=== PATIENT | female | born 1955 | race Caucasian/White ===

== ENCOUNTER 2020-06-22 14:51 | Inpatient (IN) ==
[2020-06-22] MEDS ORDERED: ONDANSETRON INJ 2 MG/ML 2 ML VIAL IV STA (15:54)
[2020-06-22] MEDS ORDERED: KETOROLAC TROMETHAMINE 15 MG/ML VIAL IV STA (15:54)
--- NOTE | 2020-06-22 15:58 | Emergency Department Note ---
Impression & Plan Right sided abdominal pain, Ovarian torsion, Nausea ED Provider Note NAME: VERÓNICA MARKHAM AGE: 64 SEX: F : 1955 ARRIVES VIA: Walk-In INFORMANT: [Patient] ED PROVIDER(S): [Jean-Paul Camacho MD] CHIEF COMPLAINT: Flank pain HISTORY OF PRESENT ILLNESS: The patient is a 64-year-old female presents to the ED with 4 hours of severe 10/10 right flank pain. The patient states that the pain started just before lunch, she ate and things got worse. She denies urinary complaints, she was nauseated but has not vomited. She states that even taking a deep breath seems to make the pain slightly worse. The patient was fine earlier in the day. She has not had cough or congestion, there has been no chest pain. No previous history of kidney stones or gallbladder issues. She states she has had pelvic surgery, but, she is not sure exactly what was done. She states she has never experienced pain similar to this in the past. REVIEW OF SYSTEMS: See HPI for pertinent positives and negatives. A total of ten systems were reviewed and were otherwise negative. PMHx/PSHx: See Below SOCIAL HISTORY: See Below. PHYSICAL EXAM: GENERAL: Patient is in moderate distress from pain. HEENT: No acute trauma, normocephalic atraumatic, mucous membranes moist, no n ravinder congestion, no scleral icterus. NECK: No stridor, no adenopathy, no meningismus, trachea is midline. LUNGS: Clear to auscultation bilaterally, no wheeze, no rhonchi, breath sounds equal. HEART: Without murmurs gallops or rubs, regular rate and rhythm. ABDOMEN: Soft, moderately tender along the entire right side of the abdomen, bowel sounds positive, no hernias, no peritonitis. EXTREMITIES: No cyanosis or edema, full range of motion of all the joints without pain or difficulty, no signs for acute trauma. NEUROLOGIC: Oriented x 3, no acute motor or sensory deficits, no focal weakness. SKIN: No rash, no jaundice, no diaphoresis. Back: No flank discomfort to percussion. DIFFERENTIAL DIAGNOSIS: Appendicitis, infections, diverticulitis, ovarian torsion, ovarian mass, UTI, obstruction, mesenteric ischemia, aortic pathology, inflammatory bowel disease, renal colic, PUD, pancreatitis, biliary pathology, hernia, volvulus, constipation, as well as other pathologies. EMERGENCY DEPARTMENT COURSE/PROCEDURES: ECG: Indication was preop. The ECG shows a sinus bradycardia with a rate of 59. There is no ST elevation, no PVCs. The QTc is 413. Continuous Cardiac Monitoring: An order was placed for continuous cardiac monitoring. The monitor shows a rate of 74 with normal sinus rhythm. MEDICAL DECISION MAKING: There is no leukocytosis or concerning anemia. There is a normal platelet co unt. No significant electrolyte abnormality or kidney failure. No concerning liver enzyme elevation. No evidence for pancreatitis. Covid testing was negative. Chest film did not show free air or pneumonia. ECG showed a sinus rhythm, no acute ischemia. Abdominal and pelvis CT suggested a right ovarian torsion and a right ovarian lesion about 5.5 cm in size. The patient was given IV saline for hydration. She received IV Toradol, IV morphine, IV Zofran. She was eventually given IV Dilaudid for additional pain control. After the results from the CT returned, I immediately spoke with [facility]. The patient was seen in the ED by W[facility] PUMPER. She is being transferred to the OR for surgical intervention. The patient is aware of her findings, case management has been involved. Certainly, the findings on CT explain her discomfort and presentation. Past Med/Surg History Medical History No significant past medical history Surgical History H/O pelvic surgery Social History Smoking Status: Current every day smoker Tobacco Type: Cigarettes Feels Safe at Home: Yes Allergies Allergies Allergy/AdvReac Type Severity Reaction Status Date / Time bee venom protein (honey bee) Allergy Unknown Verified 06/22/20 17:42 Home Meds Home Medications Medication Instructions Recorded Confirmed multivitamin 1 tab PO QAM 06/22/20 06/22/20 vitamin B complex 1 tab PO QAM 06/22/20 06/22/20 Results & Data (ED) Vital Signs Vital Signs - 24 hr 06/22/20 14:54 06/22/20 16:05 06/22/20 17:05 Temperature 36.8 C Temperature Source Temporal Artery Scan Pulse Rate 83 Pulse Rate [Finger] 70 77 Respiratory Rate 20 20 24 Respiratory Effort / Characteristics Non-Labored Spontaneous Respiratory Depth Normal Respiratory Pattern Blood Pressure [Right Arm] 182/104 H 144/114 H Blood Pressure Mean [Right Arm] 130 124 Blood Pressure Position Sitting Blood Pressure Position [Right Arm] Pulse Oximetry 100 93 94 Oxygen Delivery Method Room Air Room Air Room Air Sepsis Recent Fever Within 48 Hours No Sepsis New/Unexplained Change in Mental Status N/A Sepsis Action Taken by Nursing No Action Required 06/22/20 17:37 06/22/20 18:33 Temperature 36.7 C Temperature Source Oral Pulse Rate Pulse Rate [Finger] 74 68 Respiratory Rate 20 18 Respiratory Effort / Characteristics Non-Labored Spontaneous Respiratory Depth Normal Respiratory Pattern Regular Blood Pressure [Right Arm] 170/110 H 146/96 H Blood Pressure Mean [Right Arm] 130 112 Blood Pressure Position Blood Pressure Position [Right Arm] Sitting Pulse Oximetry 96 92 Oxygen Delivery Method Room Air Room Air Sepsis Recent Fever Within 48 Hours Sepsis New/Unexplained Change in Mental Status Sepsis Action Taken by [facility] Medications Current Medication List: was personally reviewed by me Laboratory Data Attestation: I reviewed the patient's lab results. Result diagrams: 06/22/20 15:32 06/22/20 15:32 Lab Results 06/22/20 06/22/20 06/22/20 Range/Units 15:32 15:32 17:38 WBC 7.84 (4.8-10.8) K/uL RBC 4.59 (4.2-5.4) M/uL Hgb 14.1 (12.0-16.0) g/dL Hct 40.7 (37-47) % MCV 88.7 (80-100) fL MCH 30.7 (25-34) pg MCHC 34.6 (32-36) g/dL RDW Std Deviation 41.2 (36.4-46.3) fL RDW Coeff of Gema 12.9 (11.5-14.5) % Plt Count 310 (130-400) K/uL MPV 10.1 (7.4-10.4) fL Immature Gran % (Auto) 0.1 % Neut % (Auto) 76.1 % Lymph % (Auto) 15.4 % Garden % (Auto) 7.4 % Eos % (Auto) 0.6 % Baso % (Auto) 0.4 % Neut # (Auto) 5.96 (1.4-6.5) K/uL Lymph # (Auto) 1.21 (1.2-3.4) K/uL Garden # (Auto) 0.58 (0.11-0.59) K/uL Eos # (Auto) 0.05 (0-0.5) K/uL Baso # (Auto) 0.03 (0-0.2) K/uL Immature Gran # (Auto) 0.01 (0.00-0.02) K/uL Sodium 139 (136-145) mmol/L Potassium 3.6 (3.5-5.1) mmol/L Chloride 106 (98-107) mmol/L Carbon Dioxide 27 (21-32) mmol/L Anion Gap 7.0 (3-11) BUN 16 (7-18) mg/dl Creatinine 0.97 (0.6-1.2) mg/dl Est Cr Clr Drug Dosing 58.1 ml/min Est GFR ( Amer) 71.5 Est GFR (Non-Af Amer) 61.7 BUN/Creatinine Ratio 16.4 (10-20) Glucose 122 H (70-99) mg/dl Calcium 9.8 (8.5-10.1) mg/dl Total Bilirubin 0.7 (0.2-1) mg/dl AST 12 L (15-37) U/L ALT 26 (12-78) U/L Alkaline Phosphatase 88 (45-117) U/L Total Protein 8.5 H (6.4-8.2) gm/dl Albumin 4.2 (3.4-5.0) gm/dl Globulin 4.3 H (2.5-4.0) gm/dl Albumin/Globulin Ratio 1.0 (0.9-2) Lipase 157 (73-393) U/L COVID-19 Eval [facility] SARS-CoV-2, RNA, NAAT (NEGATIVE) 06/22/20 Range/Units 17:38 WBC (4.8-10.8) K/uL RBC (4.2-5.4) M/uL Hgb (12.0-16.0) g/dL Hct (37-47) % MCV (80-100) fL MCH (25-34) pg MCHC (32-36) g/dL RDW Std Deviation (36.4-46.3) fL RDW Coeff of Gema (11.5-14.5) % Plt Count (130-400) K/uL MPV (7.4-10.4) fL Immature Gran % (Auto) % Neut % (Auto) % Lymph % (Auto) % Garden % (Auto) % Eos % (Auto) % Baso % (Auto) % Neut # (Auto) (1.4-6.5) K/uL Lymph # (Auto) (1.2-3.4) K/uL Garden # (Auto) (0.11-0.59) K/uL Eos # (Auto) (0-0.5) K/uL Baso # (Auto) (0-0.2) K/uL Immature Gran # (Auto) (0.00-0.02) K/uL Sodium (136-145) mmol/L Potassium (3.5-5.1) mmol/L Chloride (98-107) mmol/L Carbon Dioxide (21-32) mmol/L Anion Gap (3-11) BUN (7-18) mg/dl Creatinine (0.6-1.2) mg/dl Est Cr Clr Drug Dosing ml/min Est GFR ( Amer) Est GFR (Non-Af Amer) BUN/Creatinine Ratio (10-20) Glucose (70-99) mg/dl Calcium (8.5-10.1) mg/dl Total Bilirubin (0.2-1) mg/dl AST (15-37) U/L ALT (12-78) U/L Alkaline Phosphatase (45-117) U/L Total Protein (6.4-8.2) gm/dl Albumin (3.4-5.0) gm/dl Globulin (2.5-4.0) gm/dl Albumin/Globulin Ratio (0.9-2) Lipase (73-393) U/L COVID-19 Eval Order SARS-CoV-2, RNA, NAAT NEGATIVE (NEGATIVE) Administered Medications Morphine Sulfate (Morphine Sulfate 4 Mg/Ml 1 Ml Carp\Vial) 4 mg IV Q15M PRN PRN Reason: Pain Stop: 07/06/20 15:53 Last Admin: 06/22/20 16:34 Dose: 4 mg Documented by: [id number] Admin: 06/22/20 16:00 Dose: 4 mg Documented by: [id number] Discontinued Medications Hydromorphone HCl (Hydromorphone Inj 1 Mg/Ml Syringe) 1 mg IV NOW STA Stop: 06/22/20 17:02 Last Admin: 06/22/20 17:04 Dose: 1 mg Documented by: [id number] Sodium Chloride (Nss) 500 mls @ 999 mls/hr IV .Q31M ANNE Stop: 06/22/20 16:30 Last Infusion: 06/22/20 16:32 Dose: 0 mls/hr Documented by: [id number] Admin: 06/22/20 16:01 Dose: 999 mls/hr Documented by: [id number] Ketorolac Tromethamine (Ketorolac Tromethamine 15 Mg/Ml Vial) 15 mg IV NOW STA Stop: 06/22/20 15:55 Last Admin: 06/22/20 16:01 Dose: 15 mg Documented by: [id number] Ondansetron HCl (Ondansetron Inj 2 Mg/Ml 2 Ml Vial) 4 mg IV NOW STA Stop: 06/22/20 15:55 Last Admin: 06/22/20 16:01 Dose: 4 mg Documented by: [id number] Imaging Data Radiologist's Impression: XR chest 1V portable CLINICAL HISTORY: right flank pain COMPARISON STUDY: March 2007 FINDINGS: There is interval increase in the size of the heart which is now moderately enlarged. There is no failure. There is a nonspecific opacity at the level left cardiophrenic angle, likely atelectatic or infectious/inflammatory. Addition there are linear basilar atelectatic changes.[There are no significant pleural effusions. IMPRESSION: 1. Interval development of moderate cardiomegaly 2. Basilar atelectasis 3. Nonspecific 2 cm opacity at the level the left cardiophrenic angle likely atelectatic or infectious/inflammatory. Short-term radiographic follow-up is recommended. CT OF THE ABDOMEN AND PELVIS WITHOUT CONTRAST CLINICAL HISTORY: Right flank pain. COMPARISON STUDY: No previous studies for comparison. TECHNIQUE: Axial images of the abdomen and pelvis were obtained without IV contrast. Images were reviewed in the axial, sagittal, and coronal planes. Automated exposure control was utilized for the study. A dose lowering technique was utilized adhering to the principles of ALARA. FINDINGS: Visualized portions of the lower chest demonstrate a moderate sized hiatal with partially intrathoracic stomach. No renal, ureteral or bladder calculi are present. There is no hydronephrosis or hydroureter. There are parapelvic cysts. Evaluation of the remainder of the abdomen and pelvis is suboptimal on this unenhanced examination. Multiple water attenuation hepatic lesions are suboptimally assessed on this exam but favor cysts. The spleen, adrenal glands and pancreas are unremarkable. There is no biliary or pancreatic ductal dilatation. There is no lymphadenopathy. The appendix is normal. There is no evidence for a bowel obstruction. No bowel wall thickening is identified on this unenhanced examination. The uterus is surgically absent. Note is made of a hypodense right adnexal mass that measures 5.5 cm. This is likely within the right ovary. This contains a small hyperdense focus. In addition, there is swirling of the ovarian pedicle. The left ovary is not enlarged. No suspicious osseous lesions are noted. No acute fractures are identified. IMPRESSION: 1. 5.5 cm right adnexal mass. This represents an indeterminate right ovarian lesion which contains a small hyperdense focus which could reflect hemorrhage or a small solid component. In addition, swirling of the right ovarian pedicle. These findings are highly suggestive of right ovarian torsion. Gynecologic consultation is recommended. Findings discussed with Dr. Camacho at time of dictation. 2. No urinary calculi or hydronephrosis. 3. Moderate sized hiatal hernia. Discharge Plan Visit Data Chief Complaint: Flank Pain Stated Complaint: SHARP PAIN IN RIGHT SIDE ED Provider: Jean-Paul Camacho Discharge Problem: Right sided abdominal pain, Ovarian torsion, Nausea Patient Disposition: Admitted As Inpatient Condition: Fair Discharge Instructions Interventions: ED Discharge Assessment Last Done: 06/22/20 18:35
[2020-06-22] MEDS ORDERED: SODIUM CHLORIDE 0.9% 500 ML IV SCH (16:00)
[2020-06-22] MEDS: MoRPHine SULFATE 4 MG/ML 1 ML CARP\\VIAL IV PRN ×2 (16:00→16:34)
[2020-06-22 16:09] LABS: Basophils # (auto) 0.03 K/uL (0-0.2); Basophils % (auto) 0.4 %; Eosinophils # (auto) 0.05 K/uL (0-0.5); Eosinophils % (auto) 0.6 %; Hematocrit (blood only) 40.7 % (37-47); Hemoglobin 14.1 g/dL (12.0-16.0); Immature Granulocytes # (auto) 0.01 K/uL (0.00-0.02); Immature Granulocytes % (auto) 0.1 %; Lymphocytes # (auto) 1.21 K/uL (1.2-3.4); Lymphocytes % (auto) 15.4 %; Mean Corpuscular Hemoglobin 30.7 pg (25-34); Mean Corpuscular Hgb Conc 34.6 g/dL (32-36); Mean Corpuscular Volume 88.7 fL (80-100); Mean Platelet Volume 10.1 fL (7.4-10.4); Monocytes # (auto) 0.58 K/uL (0.11-0.59); Monocytes % (auto) 7.4 %; Neutrophils # (auto) 5.96 K/uL (1.4-6.5); Neutrophils % (auto) 76.1 %; Platelet Count 310 K/uL (130-400); RDW Coefficient of Variation 12.9 % (11.5-14.5); RDW Standard Deviation 41.2 fL (36.4-46.3); Red Blood Count 4.59 M/uL (4.2-5.4); White Blood Count 7.84 K/uL (4.8-10.8)
--- NOTE | 2020-06-22 16:13 | XRay Report ---
XR chest 1V portable CLINICAL HISTORY: right flank pain COMPARISON STUDY: March 2007 FINDINGS: There is interval increase in the size of the heart which is now moderately enlarged. There is no failure. There is a nonspecific opacity at the level left cardiophrenic angle, likely atelecta tic or infectious/inflammatory. Addition there are linear basilar atelectatic changes.[There are no s ignificant pleural effusions. IMPRESSION: 1. Interval development of moderate cardiomegaly 2. Basilar atelectasis 3. Nonspecific 2 cm opacity at the level the left cardiophrenic angle likely atelectatic or infectiou s/inflammatory. Short-term radiographic follow-up is recommended. ACT 112: Negative or not required by law. Electronically signed by: Arnaldo Arredondo M.D. 06/22/2020 4:12 PM
[2020-06-22 16:31] LABS: Albumin Level 4.2 gm/dl (3.4-5.0); BUN Creatinine Ratio 16.4 (10-20); Calcium 9.8 mg/dl (8.5-10.1); Creatinine Clr Calc Pharmacy 58.1 ml/min; Est GFR (African American) 71.5; Est GFR (Non-African American) 61.7; Potassium 3.6 mmol/L (3.5-5.1)
[2020-06-22 16:34] LABS: Bilirubin,Total 0.7 mg/dl (0.2-1); Globulin 4.3 gm/dl (2.5-4.0); Total Protein 8.5 gm/dl (6.4-8.2)
[2020-06-22] MEDS ORDERED: HYDROmorphone INJ 1 MG/ML SYRINGE IV STA (17:01)
--- NOTE | 2020-06-22 17:04 | CT Scan Report ---
CT OF THE ABDOMEN AND PELVIS WITHOUT CONTRAST CLINICAL HISTORY: Right flank pain. COMPARISON STUDY: No previous studies for comparison. TECHNIQUE: Axial images of the abdomen and pelvis were obtained without IV contrast. Images were revi ewed in the axial, sagittal, and coronal planes. Automated exposure control was utilized for the michelle dy. A dose lowering technique was utilized adhering to the principles of ALARA. FINDINGS: Visualized portions of the lower chest demonstrate a moderate sized hiatal with partially i ntrathoracic stomach. No renal, ureteral or bladder calculi are present. There is no hydronephrosis o r hydroureter. There are parapelvic cysts. Evaluation of the remainder of the abdomen and pelvis is s uboptimal on this unenhanced examination. Multiple water attenuation hepatic lesions are suboptimally assessed on this exam but favor cysts. The spleen, adrenal glands and pancreas are unremarkable. The re is no biliary or pancreatic ductal dilatation. There is no lymphadenopathy. The appendix is normal . There is no evidence for a bowel obstruction. No bowel wall thickening is identified on this unenha nced examination. The uterus is surgically absent. Note is made of a hypodense right adnexal mass carmela t measures 5.5 cm. This is likely within the right ovary. This contains a small hyperdense focus. In addition, there is swirling of the ovarian pedicle. The left ovary is not enlarged. No suspicious oss eous lesions are noted. No acute fractures are identified. IMPRESSION: 1. 5.5 cm right adnexal mass. This represents an indeterminate right ovarian lesion which contains a small hyperdense focus which could reflect hemorrhage or a small solid component. In addition, swirli ng of the right ovarian pedicle. These findings are highly suggestive of right ovarian torsion. Gynec ologic consultation is recommended. Findings discussed with Dr. Camacho at time of dictation. 2. No urinary calculi or hydronephrosis. 3. Moderate sized hiatal hernia. ACT 112: Negative or not required by law. Electronically signed by: Edvin Chin M.D. 06/22/2020 5:03 PM
[2020-06-22] MEDS ORDERED: ONDANSETRON INJ 2 MG/ML 2 ML VIAL IV PRN (17:37)
[2020-06-22] MEDS ORDERED: LACTATED RINGER'S 1,000 ML IV SCH (17:45)
--- NOTE | 2020-06-22 17:55 | History & Physical Report ---
Date of Service June 22, 2020 Assessment & Plan (1) Ovarian mass, right: Operative laparoscopy with right oophorectomy planned Present on Admission?: Yes History of Present Illness Chief Complaint: right sided abdominal pain Primary Care Provider: NO PCP 64 F P2002 s/p [facility] in 2006 for fibroids presents to ER with acute onset of RLQ pain and nausea this AM. She has no prior history of this pain. She is nauseous but no vomiting. Pain is mostly RLQ with some catrina-umbilical pain. No other surgical history. She denies any vaginal bleeding. No medical problems currently and no history of Covid exposure. Allergies Allergy/AdvReac Type Severity Reaction Status Date / Time bee venom protein (honey bee) Allergy Unknown Verified 06/22/20 17:42 Home Medications Medication Instructions Recorded Confirmed Type multivitamin 1 tab PO QAM 06/22/20 06/22/20 History vitamin B complex 1 tab PO QAM 06/22/20 06/22/20 History Past Med/Surg History Social History Smoking Status: Current every day smoker Tobacco Type: Cigarettes Feels Safe at Home: Yes Review of Systems Review of Systems: All systems reviewed & are unremarkable except as noted in HPI & below Physical Exam Constitutional: WD/WN, vitals as above + acute distress, + ill appearing and average body habitus Eyes: PERRL, conjunctivae normal, anicteric sclerae ENMT: external ear and nose normal, oropharynx normal Respiratory: normal respiratory effort, lungs clear to auscultation Cardiovascular: RRR, no murmur, no edema Chest (Breasts): Chest: normal inspection of chest Gastrointestinal (Abdomen): Percussion/Palpation: + abdomen tender and + guarding Neurologic: patellar DTR's 2+ bilat, sensation intact Psychiatric: A+Ox3, euthymic affect Orientation: alert and oriented x 3 Results & Data Results & Data ([facility]) Vital Signs (Past 12 Hours) Vital Signs Temp Pulse Pulse Resp BP Pulse Ox 06/22/20 17:37 74 20 170/110 H 96 06/22/20 17:05 77 24 144/114 H 94 06/22/20 16:05 70 20 182/104 H 93 06/22/20 14:54 36.8 C 83 20 100 Code Status & VTE Plan VTE Prophylaxis Plan VTE Prophylaxis will be ordered: Yes
[2020-06-22] MEDS ORDERED: LIDOCAINE HCL 2% 2 ML VIAL/AMP(20MG/ML) INFIL ONE (18:34)
[2020-06-22] MEDS ORDERED: DEXAMETHASONE SOD INJ 4 MG/ML VIAL ONE (18:34)
[2020-06-22] MEDS ORDERED: GLYCOPYRROLATE 0.2 MG/ML VIAL ONE ×2 (18:34→22:19)
[2020-06-22] MEDS ORDERED: PROPOFOL IV EMULSION 10 MG/ML 20 ML VIAL IV ONE (18:34)
[2020-06-22] MEDS ORDERED: NEOSTIGMINE METHYLSULFATE 5 MG/5 ML SYR ONE (18:34)
[2020-06-22] MEDS ORDERED: ONDANSETRON INJ 2 MG/ML 2 ML VIAL ONE (18:34)
[2020-06-22] MEDS ORDERED: MIDAZOLAM HCL 1 MG/ML 2ML VIAL ONE (19:09)
[2020-06-22] MEDS ORDERED: fentaNYL citrate 100 MCG/2 ML VIAL ONE ×3 (19:09→23:11)
[2020-06-22] MEDS ORDERED: BUPIVACAINE 0.5 % 5 MG/1 ML MPF 30ML VIAL ONE ×2 (21:33→23:57)
[2020-06-22] MEDS ORDERED: ePHEDrine sulfate 50 MG/ML SYR ONE (22:10)
[2020-06-22] MEDS ORDERED: ROCURONIUM BROMIDE 10 MG/ML 5 ML VIAL IV ONE (22:11)
[2020-06-22] MEDS ORDERED: KETOROLAC 30 MG/ML VIAL ONE (22:14)
--- NOTE | 2020-06-23 00:25 | Post Operative Brief Note ---
Immediate Post Op Note v1 Date of Surgery June 23, 2020 Pre & Post Diagnosis Operation Date: 06/22/20 19:00 Pre-Op Diagnosis: right ovarian torsion Post-Op Diagnosis: right ovarian torsion I identified the patient and participated in the time-out.: Yes Procedure Operation Date: 06/22/20 19:00 Actual Procedures p Diagnostic Laparoscopic Operative, Removal of Right Ovary, Lysis of Adhesions(Right) - Jefe Rose MD Surgeon Jefe Rose MD Mark Up Designer Dr. Diaz Estimated Blood Loss 25 Findings Consistent with Post-Op Diagnosis multiple abdominal and pelvic adhesions torsion of right tube and ovary Fluids LR 1200 ml Specimens right tube and ovary Drains Lane Catheter (insterted by Dr Rose at start of case without diffculty, draining clear yellow urine. ) Anesthesia Type General Complications none Disposition Accompanied Patient To Recovery: Yes Disposition: Surgical ICU Overlapping Procedure I was immediately available: during the entire case. Back up surgeon: used during listed procedure.
[2020-06-23] MEDS ORDERED: ACETAMINOPHEN 1,000 MG/100 ML VIAL IV PRN (00:30)
[2020-06-23] MEDS ORDERED: ATROPINE SULFATE 0.1 MG/ML 10ML SYR IV PRN (00:49)
[2020-06-23] MEDS ORDERED: fentaNYL citrate 100 MCG/2 ML VIAL IV PRN (00:49)
[2020-06-23] MEDS ORDERED: ePHEDrine sulfate 50 MG/ML AMP IV PRN (00:49)
--- NOTE | 2020-06-23 00:49 | Anesthesiology Consultation ---
Date of Service June 23, 2020 Assessment & Plan ASA [id number] Proposed Anesthesia Anesthesia Type: General Risk / Benefits Reviewed With: PT / POA / Parent / Guardian, Accepts Plan and Informed Consent Obtained Additional Comments: pt was seen and examined prior to case. late entry History Surgery Operation Date: 06/22/20 19:00 Proposed Procedures p Diagnostic Laparoscopic Operative, Possible Removal of Right Ovary - Jefe Rose MD Height/Weight Height: 5 ft 4 in Weight: 75 kg Allergies Allergy/AdvReac Type Severity Reaction Status Date / Time bee venom protein (honey bee) Allergy Unknown Verified 06/22/20 17:42 Medications Home Medications Medication Instructions Recorded Confirmed Last Taken multivitamin 1 tab PO QAM 06/22/20 06/22/20 06/21/20 vitamin B complex 1 tab PO QAM 06/22/20 06/22/20 06/21/20 Active Medications Generic Name Dose Route Start Last Admin Trade Name Freq PRN Reason Stop Dose Admin Morphine Sulfate 4 mg 06/22/20 15:54 06/22/20 16:34 Morphine Sulfate 4 Mg/Ml 1 Ml Carp\Vial IV 07/06/20 15:53 4 mg Q15M PRN Administration Pain NPO Date Last Intake of Fluids: 06/22/20 Time Last Intake of Fluids: 15:00 Last Intake of Fluids Comment: water Date Last Intake of Solids: 06/22/20 Time Last Intake of Solids: 12:00 Last Intake of Solids Comment: shrimp and noodles Past Medical History Medical History No significant past medical history Exercise / Class Metabolic Activity II 4-5 Yardwork/Stairs/Walk up hill Past Surgical History Surgical History H/O pelvic surgery Past Anesthesia History No Hx of Anesthesia Complications and No Family Hx of Anesthesia Complications History of PONV No Hx of PONV and No Hx of Motion Sickness Social History Smoking Status: Current every day smoker Review of Systems denies fever/cough/ colds/ chest pain/ SOB/ CORNELIUS denies CORNELIUS Physical Exam Vital Signs Last Vital Signs Temp 36.8 C 06/23/20 00:19 Pulse 77 06/23/20 00:45 Resp 17 06/23/20 00:45 BP 104/64 06/23/20 00:45 Pulse Ox 94 06/23/20 00:45 ENMT Mouth: + dentures; no TMJ abnormality and no dentition abnormality Thyromental Distance: > or= 3.5 Finger Breadths Mallampati Class: II Neck neck extension not limited Respiratory normal respiratory effort; no respiratory distress Auscultation: lungs clear to auscultation bilaterally Cardiovascular Rate/Rhythm: regular rate and regular rhythm Neurologic moves all extremities Psychiatric Orientation: alert and oriented x 3 Testing Laboratory Results 06/22/20 15:32 06/22/20 15:32
--- NOTE | 2020-06-23 00:50 | Anesthesiology Progress Note ---
Date of Service June 23, 2020 Anesthesia Post Procedure Vital Signs Vital Signs: Temp Pulse Pulse Pulse Resp BP Pulse Ox 06/23/20 00:45 77 17 104/64 94 06/23/20 00:35 78 23 110/59 L 94 06/23/20 00:25 77 16 112/61 94 06/23/20 00:19 36.8 C 87 20 126/61 97 06/22/20 18:33 36.7 C 68 18 146/96 H 92 06/22/20 17:37 74 20 170/110 H 96 06/22/20 17:05 77 24 144/114 H 94 06/22/20 16:05 70 20 182/104 H 93 06/22/20 14:54 36.8 C 83 20 100 Pain Intensity Abdomen: Pain Intensity: 6 Transfer of Care Handoff Completed per policy Notes Mental Status: alert / awake / arousable and participated in evaluation Patient Amnestic to Procedure: Yes Nausea / Vomiting: adequately controlled Pain: adequately controlled Airway Patency, RR, SpO2: stable & adequate BP & HR: stable & adequate Hydration State: stable & adequate Anesthetic Complications: no major complications apparent and Pt Satisfied with anesthetic care
[2020-06-23] MEDS ORDERED: LACTATED RINGER'S 1,000 ML IV SCH (01:20)
[2020-06-23] MEDS ORDERED: IBUPROFEN 600 MG TAB PO PRN (01:20)
[2020-06-23] MEDS ORDERED: oxyCODONE HCL IR 5 MG TAB (IMMEDIATE RELEASE) PO PRN (01:20)
[2020-06-23] MEDS ORDERED: MoRPHine SULFATE 2 MG/ML CARP IV PRN (01:32)
[2020-06-23] MEDS ORDERED: MoRPHine SULFATE 4 MG/ML 1 ML CARP\\VIAL IV PRN (01:33)
[2020-06-23] MEDS ORDERED: COUGH DROP (SUGAR FREE) LOZ 24 LOZ/1 BOX BUCCAL ONE (02:22)
[2020-06-23] MEDS ORDERED: COUGH DROP (SUGAR FREE) LOZ 24 LOZ/1 BOX BUCCAL PRN (02:26)
--- NOTE | 2020-06-23 06:52 | Operative Report (OR) ---
DATE OF OPERATION: 06/22/2020 PREOPERATIVE DIAGNOSES: Right lower quadrant pain, ovarian torsion, right pelvic mass. POSTOPERATIVE DIAGNOSES: Right lower quadrant pain, ovarian torsion, right pelvic mass plus adhesions. PROCEDURE: Operative laparoscopy with right salpingo-oophorectomy and lysis of adhesions. SURGEON: Jefe Rose MD VICE INVESTIGATOR: Emil Diaz MD ANESTHESIA: General. FINDINGS: Right tube and ovary with torsion and right ovarian mass and extensive pelvic and abdominal adhesions. CLINICAL HISTORY: The patient is a 64-year-old female, para 2-0-0-2, status post hysterectomy in the past for fibroids, who presents today after noting right lower quadrant pain starting around lunchtime today, never having this previously, with some nausea. The patient had pain that progressed and was sent and came to the ER. CAT scan revealed presence of possible torsion and a right ovarian mass approximately 5.5 cm. The patient was seen and examined in the ER. She was found to be tender, guarding on the right lower quadrant. No evidence of appendicitis on CAT scan, so a diagnosis of right ovarian mass with torsion was made and the patient was brought to the OR for surgery. DESCRIPTION OF PROCEDURE: After satisfactory general anesthesia, the patient was prepped and draped in usual sterile fashion. Timeout was called prior to the start of the procedure. A Lane catheter was then inserted under direct visualization. Next, attention was then directed abdominally where approximately 5 mL of 0.5% Marcaine were instilled infraumbilically. Stab wound was made with a #15 knife blade. A Veress needle was then placed. Using hanging drop method, the Veress needle was placed. Approximately 3 liters of carbon dioxide gas were then instilled creating an artificial pneumoperitoneum. Veress needle was withdrawn. The 5 mm trocar was inserted. Contents of the pelvic and abdominal cavity were visualized. There were numerous adhesions that were noted from the omentum to the abdominal wall. A second trocar was then placed on the left side of the pelvis for manipulation and retraction of the adhesion and then a third trocar was placed on the right hand side. The adhesions were then visualized. The enseal device was then used to cauterize and cut the adhesions. Once the ovary was visualized, the ovary was then grasped, enseal was then used to cauterize and cut the infundibulopelvic ligament. The 5 mm port was then replaced with a 10 mm port and the ovary was placed in an EndoCatch bag. Ovary was removed in its entirety, which was hemorrhagic, and this procedure was documented with still video photography. The base of the ligament was cauterized. No active bleeding was noted. The contents of the pelvic and abdominal cavity were then irrigated to clear. The incision from the 10 mm port was closed with 0 Vicryl suture with deep sutures followed by imbricating layer of subcuticular layer and 4-0 Monocryl suture. The other ports were closed with 3-0 Vicryl suture. Steri-Strips were applied. Clear urine was noted from the Lane at the end of the procedure. The estimated blood loss was 25 mL, total fluids 1200 mL, and 150 mL of urine. The final sponge, needle, and instrument count were found to be correct. The patient was placed supine on a stretcher and taken to recovery room in stable condition. Please note Dr. Diaz was present for the OR case, providing assistance for entering into the abdominal cavity, holding the camera, lysing adhesions, and operative assistance with the EndoCatch bag and the procedure. I attest to the content of the Intraoperative Record and any orders documented therein. Any exceptions are noted below. JONNY
[2020-06-23] MEDS ORDERED: VITAMIN B COMPLEX TAB PO SCH (09:00)
[2020-06-23] MEDS ORDERED: MULTIVITAMIN TAB PO SCH (09:00)
--- NOTE | 2020-06-23 10:31 | Progress Note ---
Date of Service June 23, 2020 Assessment & Plan Admission and Anticipated Discharge Date Admission Date: June 22, 2020 Subjective Pt doing well s/p lap RSO Nml PE this AM abd; NT ND + BS. Incision C/D/I plan d/c home Results & Data ([facility]) Vital Signs (Past 12 Hours) Vital Signs Temp Pulse Pulse Resp BP Pulse Ox 06/23/20 04:50 36.8 C 85 18 133/82 94 06/23/20 02:08 36.4 C L 91 H 16 139/89 96 06/23/20 01:07 36.5 C 71 12 128/85 06/23/20 00:55 36.5 C 75 12 117/46 L 94 06/23/20 00:45 77 17 104/64 94 06/23/20 00:35 78 23 110/59 L 94 06/23/20 00:25 77 16 112/61 94 06/23/20 00:19 36.8 C 87 20 126/61 97
[2020-06-23 10:48] LABS: Hematocrit (blood only) 34.3 % (37-47); Hemoglobin 11.5 g/dL (12.0-16.0)
[2020-06-23] MEDS ORDERED: ACETAMINOPHEN 500 MG TAB PO PRN (12:54)
--- NOTE | 2020-06-23 13:12 | Electrocardiogram Report ---
Test Reason : Blood Pressure : / mmHG Vent. Rate : 059 BPM Atrial Rate : 059 BPM P-R Int : 186 ms QRS Dur : 092 ms QT Int : 418 ms P-R-T Axes : 050 040 033 degrees QTc Int : 413 ms Sinus bradycardia with Fusion complexes Low voltage QRS Borderline ECG When compared with ECG of 13-APR-2007 14:39, Fusion complexes are now Present Confirmed by Jose Hewitt ([id number]) on 06/23/2020 1:11:35 PM Referred By: REFERRED SELF Confirmed By:Jose Hewitt
--- NOTE | 2020-06-28 11:17 | Discharge Summary (DS) ---
REASON FOR ADMISSION AND HOSPITAL COURSE: The patient is a 64-year-old female, para 2-0-0-2, status post hysterectomy for fibroids in the past, presents to the ER with acute onset of right lower quadrant pain with nausea of 1 day duration. The patient had a 5.5 cm right ovarian mass suspicious for torsion based on CAT scan. The patient had significant pain, was taken to the OR. In the OR, torsion of the right ovary and tube were noted and a right salpingo-oophorectomy and lysis of adhesions were done. The patient tolerated the procedure well and she was discharged on 06/23/2020 in stable condition. Home going instructions were given. Condition on discharge stable. Regular diet on discharge. Medications include Percocet and Motrin. Follow up will be in 1 week for an incision check.
--- NOTE | 2020-07-06 12:45 | Coding Query ---
CODING QUERY To promote full compliance with coding requirements relating to patient care, provider participation is requested in all cases of test cell technician uncertainty. Please assist us with the question(s) below: Coding Question(s): 1. The Operative Report on 06/22/20 documents Right Salpingo-Oophorectomy and the body of the report documents the ovary was removed in its entirety, but does not document the removal of the fallopian tube. Please specify below, regarding the right fallopian tube. ( ) All of the Right Fallopian Tube was removed ( x) Portion of Right Fallopian Tube was removed ( ) None of the Right Fallopian Tube was removed ( ) Other: Please Specify 2. The Operative Report on 06/22/20 documents findings including extensive pelvic and abdominal adhesions and the body of the report documents there were numerous adhesions that were noted from the omentum to the abdominal wall. There is documentation of lysis of adhesions. Please specify below, in your clinical opinion, regarding the adhesions. ( ) Lysis of adhesions significantly increased the time or difficulty of the procedure (x ) Lysis of adhesions did Not significantly increase the time or difficulty of the procedure Physician's Response(s): Thank you Diana Amezcua Principal Diagnosis: "that condition established after study, to be chiefly responsible for occasioning the admission of the patient to the hospital for care." Co-Existing Principal Diagnosis: "when two or more diagnoses equally meet the criteria for principal diagnosis as determined by the circumstances of admission, diagnostic work up, and/or therapy provided, and the Alphabetic Index, Tabular List, or another coding guideline does not provide sequencing direction, any one of the diagnoses may be sequenced first." "When the physician has documented what appears to be a current diagnosis in the body of the record, but has not included the diagnosis in the final diagnostic statement, the physician should be asked whether the diagnosis should be added." ([facility] 2 QTR90. p3-4) JONNY
== END 2020-06-23 14:50 | disposition home or self-care (01) | DRG 743 ==
LOC: ED 14:51 → ASU 18:35 → 4S2 18:36